=== PATIENT | male | born 1960 | race Caucasian/White ===

== ENCOUNTER 2016-09-20 18:51 | Emergency (ER) | payer OTHER ==
[~2016-09-20] VITALS: Ht 177.8 cm; Wt 117.9 kg
[~2016-09-20 18:51] MED LIST: CIPROFLOXACIN500 M2 PO; PERCOCET 5-3251 EACH PO
[2016-09-20] MEDS ORDERED: LISINOPRIL20 M1 PO (19:26)
--- NOTE | 2016-09-20 19:39 | RADIOLOGY REPORT ---
EXAMINATION: XR SHOULDER, LEFT CLINICAL INFORMATION: 56-year-old man with pain post fall. COMPARISON: None. TECHNIQUE: 3 views of the left shoulder were obtained. FINDINGS: There is anterior and inferior dislocation of the left humeral head. There is no convincing radiographic evidence of an associated fracture. Mild degenerative changes are noted at the acromioclavicular joint. IMPRESSION: Anterior inferior left shoulder dislocation.
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
--- NOTE | 2016-09-20 22:45 | RADIOLOGY REPORT ---
EXAMINATION: XR SHOULDER, LEFT CLINICAL INFORMATION: Evaluation status post reduction. COMPARISON: Left shoulder radiographs 09/20/2016 at 7:00 PM. TECHNIQUE: 4 views of the left shoulder were obtained. FINDINGS: The left shoulder dislocation has been reduced. No clear evidence of an acute fracture. There is degenerative arthrosis of the acromioclavicular joint with spurring along its undersurface. The acromiohumeral interval is narrow, measuring approximately 0.5 cm compatible with a rotator cuff injury. Soft tissues are otherwise unremarkable. Visualized portions of the left hemithorax reveal no abnormal finding. IMPRESSION: The left shoulder dislocation has been successfully reduced.
[2016-09-20] MEDS ORDERED: PERCOCET 5-3251 EACH PO (22:49)
[2016-09-20 23:01] VITALS: BP 139/72
== END 2016-09-20 22:55 ==
LOC: ERH 18:51
DX: S43.006A Unspecified dislocation of unspecified shoulder joint, initial encounter (principal); T14.8 Other injury of unspecified body region; W19.XXXA Unspecified fall, initial encounter
CPT/HCPCS: 73030-LT; 96374; 96375; J3360

== ENCOUNTER → 2017-01-03 | Day surgery (SDC) | payer OTHER ==
[~2017-01-03] VITALS: Ht 177.8 cm; Wt 126.1 kg
[~2017-01-03] MED LIST changes: +LISINOPRIL20 M1 PO
--- NOTE | 2017-01-03 16:12 | Operative Report ---
Operative/Inv Procedure Report Surgery Date: 01/03/17 Name of Procedure: left shoulder arthroscopy with rotator cuff repair and subacromial decompression ; open biceps tenodesis Pre-Operative Diagnosis: left shoulder rotator cuff tear, impingement, biceps tendonitis/subluxation Post-Operative Diagnosis: left shoulder rotator cuff tear, impingement, biceps tendonitis/subluxation Estimated Blood Loss: less than 50ml Surgeon/Assistant Director Of Security: ILAN GUAJARDO,Edson Burleson PA-C Anesthesia: general endotracheal tube, block Implants: Mitek Healix Advance PEEK anchor, 4.5mm x2 Mitek Healix Advance Knotless PEEK anchor, 5.5mm x2 Arthrex Proximal Biceps Tenodesis Button Drains: None Specimens: None Complications: None Condition: Stable Operative/Procedure Note Note: INDICATION FOR PROCEDURE: Shaggy Roman is a 57-year-old [id number] male who presented to the orthopedic clinic for evaluation of his left shoulder following a dislocation. He sustained a fall off of his porch resulting in anterior dislocation of the left shoulder. He was reduced at [facility], but continued to have left shoulder pain. An MRI of the left shoulder and a full-thickness rotator cuff tear as well as subluxation of the long head of the biceps tendon. The patient attempted nonoperative management with activity modification, anti- inflammatories, a corticosteroid injection, and physical therapy, however could not find durable relief. He had considerable pain use of the left shoulder at night. Her discussing the risks benefits and alternatives to surgery, the patient is up to proceed with left shoulder arthroscopic rotator cuff repair, subacromial decompression, and open biceps tenodesis versus tenotomy. OPERATIVE REPORT: The patient arrives at [facility] on 01/03/2017. He has met in the preoperative holding area, where his operative extremity was marked and his past medical history was reviewed. A regional nerve block was performed by the anesthesia service. The patient was then taken to the operating room and placed supine on the operating room table. Sequential compression devices were applied to bilateral lower extremities, however no chemical VTE prophylaxis was administered. A timeout procedure was performed, in which the patient, operative extremity, and procedure were verified. The patient was then induced under general anesthesia. Perioperative antibiotics (clindamycin) were administered for prophylaxis. The patient was then repositioned in a modified beachchair position. Care was taken to pad all bony prominences and support the head in a neutral position. The left shoulder was manipulated under anesthesia and noted to be stiff, but released with passive motion. The left upper extremity was prepped and draped in the usual sterile fashion and supported by an articulated arm bone. A standard posterior portal was created with a #11 blade scalpel. This allowed for introduction of the arthroscopic camera into the glenohumeral joint. The patient was noted to have synovitis throughout the shoulder. An anterior portal was created after localization with a spinal needle. This allowed for introduction of the shaver and VAPR into the joint for debridement and better visualization. There was minimal glenohumeral arthritis and the superior labrum was frayed and degenerative. The long head of the biceps tendon was significantly frayed and subluxed into the joint when tested. With the shoulder abducted and externally rotated, in anterior rotator cuff tear is visualized lateral to the rotator cable. There was no tearing noted of the posterior cuff or subscapularis tendons. There was evidence of prior dislocation along the anterior inferior labrum, however no overt instability. Given the damage to the long head of the biceps tendon, the decision was made to proceed with tenodesis. The tendon was tagged with a 0 PDS suture and cut from its attachment to the labrum. The anterior capsule and rotator interval were released given the patient's pre-operative stiffness. The camera was then taken to the subacromial space. There was significant bursitis noted above the rotator cuff tendons. A lateral portal was created after localization with a spinal needle, which allowed for introduction of the shaver and VAPR into the space. Was used to debride the bursitis for better visualization. The VAPR device was used to debride the undersurface of the acromion, where a moderate anterolateral acromial spur was noted. This was carefully smoothed down with high-speed bur using the cutting block technique. We then turned our camera inferiorly to evaluate the rotator cuff tear. A U-shaped tear was noted in the lateral aspect of the rotator cuff footprint with retraction. The tear was full-thickness with associated tendinosis posteriorly. The footprint was prepared using the high speed pablo. Two 4.5mm Healix anchors were placed in the footprint, one anterior and one posterior. The sutures were shuttled, the passed into the cuff tissue with an Showcase sutures passer in horizontal mattresses. This was done through one of two lateral portals. The sutures were then sequentially tied to bring the cuff tissue down to the footprint. The sutures were then divided and brought to two lateral row 5.5mm knotless anchors. The shoulder was abducted and rotated for placement of the lateral anchors. The sutures were tensioned and brought down into position with good fixation. The cuff repair was then evaluated and the tissue noted to be re -approximated nicely to the footprint. The instruments were then removed from the shoulder and any excess fluid was evacuated. We then turned our attention to the biceps tenodesis portion of the case. An incision was made over the medial humerus at the level of the pectoralis major tendon, just lateral to the axilla. This was taken through skin and subcutaneous tissues. Blunt dissection was just to localize the plane between the deltoid and the pec muscle, down to bone. The pec tendon was palpated, as was the long head of the biceps tendon in the groove. The sheath over the groove was carefully opened and the biceps tendon pulled anteriorly out the incision. The musculotendinous junction was identified and fiberwire suture whip-stitched approximately 2cm proximal. The residual tendon was cut and discarded. The suture was threaded through the tenodesis button. The pectoralis tendon was retracted and a 3.2mm drill was used to perforate the anterior cortex. The button was then dropped into the drill hole and disengaged, allowing the button to flip. The sutures were toggled and the tendon tensioned against the bone. A free needle was used to pass suture through the tendon again and tied for added fixation. The incision was irrigated with normal saline and closed in layers using 0 vicryl, 2-0 vicryl, and a running 3-0 prolene for the skin. The incision was dressed with steriStrips. The portals were closed with 3-0 prolene and dressed with xeroform, gauze, and ABD pads. The dressings were secured with foam tape. The ultrasling was applied to the left arm. The patient was repositioned supine and extubated. He was taken from the OR to the PACU in stable condition.
== END ==
LOC: STS 04:23
DX: S46.092A Other injury of muscle(s) and tendon(s) of the rotator cuff of left shoulder, initial encounter (principal); M25.812 Other specified joint disorders, left shoulder; M75.22 Bicipital tendinitis, left shoulder; W17.89XA Other fall from one level to another, initial encounter; M75.52 Bursitis of left shoulder; I10 Essential (primary) hypertension; E66.9 Obesity, unspecified
CPT/HCPCS: J0131; J0171; J1100; J2250; J2405